=== PATIENT | female | born 1970 | race Caucasian/White ===

== ENCOUNTER 2023-02-06 08:18 | Outpatient (CLI) | payer BC | END 2023-02-06 08:19 | disposition home or self-care (01) | LOC: RAD-FRANK 08:18 | PROVIDERS: ATTEND Nurse Practitioner Family | DX: M79.644 Pain in right finger(s) (principal); M19.041 Primary osteoarthritis, right hand; M85.841 Other specified disorders of bone density and structure, right hand ==